=== PATIENT | female | born 1985 | race Caucasian/White ===

== ENCOUNTER 2017-04-06 17:08 | Emergency (ER) | payer OTHER ==
[~2017-04-06] VITALS: Ht 154.9 cm; Wt 81.6 kg
[2017-04-06] MEDS ORDERED: EFFEXOR ONE (17:27)
--- NOTE | 2017-04-06 17:27 | ER.PDOC ---
General Chief Complaint: General Complaint Stated Complaint: POSS OVERDOSE TRAVEL OUT OF US: No Time seen by MD: 17:20 Source: patient Exam Limitations: no limitations History of Present Illness Initial Comments Pt taking effexor, has been without medicines for two days and has been experiencing sweats, sensation of SOB, no CP Timing/Duration: 24 hours Severity: mild Associated Symptoms: diaphoresis, shortness of breath Allergies: Coded Allergies: No Known Allergies (Unverified , 04/06/17) Past Medical History Medical History: hypertension Surgical History: hysterectomy LMP (females 10-50): hysterectomy Social History Smoking: greater than 1 pack/day Alcohol Use: none Drug Use: none Review of Systems Constitutional: see HPI EENTM: see HPI Respiratory: see HPI Cardiovascular: see HPI Gastrointestinal: see HPI Genitourinary: see HPI Musculoskeletal: see HPI Skin: see HPI Psychiatric/Neurological: see HPI Hematologic/Lymphatic: see HPI Immunological/Allergic: see HPI Physical Exam General Appearance: No Apparent Distress, WD/WN, Anxious EENT: eyes nml inspection, nml ENT inspection Neck: Non-Tender, Full Range of Motion Respiratory: chest non-tender CVS: reg rate & rhythm Gastrointestinal: Normal Bowel Sounds, No Organomegaly Back: Normal Inspection Extremities: Normal Range of Motion, Non-Tender, Normal Inspection Neurologic/Psychiatric: belt puncher II-XII NML as Tested, No Motor/Sensory Deficits Skin: Normal Color Lymphatic: No Adenopathy Departure Time of Disposition: 17:30 Disposition: 01 HOME, SELF-CARE Impression: Primary Impression: Antidepressant discontinuation syndrome Condition: Stable Referrals: PCP,UNKNOWN (PCP) PRIMARY CARE PROVIDER JOSESITO MENDEZ MD Apr 06, 2017 17:27
[2017-04-06] MEDS ORDERED: EFFEXOR XR PO STA (17:28)
[2017-04-06 17:51] VITALS: BP 145/79
== END 2017-04-06 17:49 | disposition home or self-care (01) ==
LOC: ER 17:08
DX: F19.239 Other psychoactive substance dependence with withdrawal, unspecified (principal); I10 Essential (primary) hypertension; F17.200 Nicotine dependence, unspecified, uncomplicated; R06.02 Shortness of breath
CPT/HCPCS: 99282